=== PATIENT | female | born 1980 | race Caucasian/White ===

== ENCOUNTER 2017-09-10 16:03 | Outpatient (CLI) | payer OTHER ==
--- NOTE | 2017-09-10 17:44 | ULT ---
OBSTETRICAL ULTRASOUND 09/10/17 COMPARISON: None. HISTORY: 36-year-old female undergoing routine anatomic assessment. TECHNIQUE: Multiplanar garcia scale sonographic imaging of the gravid uterus obtained. FINDINGS: Cervical length is 5.6 cm. Single intrauterine gestation present with a vertex presentation. Placenta is located in the anterior fundus, demonstrating no evidence for previa or abruption. Four chamber heart view appears normal, with a heart rate of 150 beats per minute. The stomach, nose, and lips, diaphragm, urinary bladder, umbilical cord and cord insertion, kid neys, extremities, and spine appear grossly unremarkable. Amniotic fluid index appears normal, measuring 15.3 cm. BIOMETRY: BPD 5.2 cm 21 weeks, 5 days HC 19.1 cm 21 weeks, 3 days AC 16.3 cm 21 weeks, 3 days FL 3.6 cm 21 weeks, 2 days Average age based on ultrasound was 21 weeks, 3 days with an estimated date of delivery of 01/18/18. E stimated weight is 418 grams. IMPRESSION: Single live intrauterine gestation. POS: MEGHAN
== END 2017-09-10 16:04 | disposition home or self-care (01) ==
LOC: ULT 16:03
PROVIDERS: ATTEND Obstetrics & Gynecology
DX: O09.522 Supervision of elderly multigravida, second trimester (principal); Z3A.21 21 weeks gestation of pregnancy
CPT/HCPCS: 76805